=== PATIENT | male | born 1945 | race Caucasian/White ===

== ENCOUNTER 2017-04-17 17:16 | Emergency (ER) | payer MEDICARE, OTHER ==
[2017-04-17 17:20] VITALS: BP 126/80
--- NOTE | 2017-04-17 18:15 | PHYS DOC ---
Adult General Chief Complaint Chief Complaint: LACERATION/AVULSION [facility] HPI 71-year-old male ambulatory and functional lives at home now traveling out of town and presents to the emergency department because of a laceration at the base of his right thumb. Trying to cut a zip tie with a pen knife when he slipped and cut his right thumb. He had some bleeding but it is now controlled. He has normal use and range of motion of his thumb without difficulty. His tetanus is not up-to-date. No other complaints Review of Systems Review of Systems Constitutional: Denies fever or chills [] Eyes: Denies change in visual acuity, redness, or eye pain [] HENT: Denies nasal congestion or sore throat [] Respiratory: Denies cough or shortness of breath [] Cardiovascular: No additional information not addressed in HPI [] GI: Denies abdominal pain, nausea, vomiting, bloody stools or diarrhea [] : Denies dysuria or hematuria [] Musculoskeletal: Denies back pain or joint pain [] Integument: Denies rash or skin lesions [] Neurologic: Denies headache, focal weakness or sensory changes [] Endocrine: Denies polyuria or polydipsia [] Physical Exam Physical Exam Constitutional: Well developed, well nourished, no acute distress, non-toxic appearance. [] HENT: Normocephalic, atraumatic, bilateral external ears normal, oropharynx moist, no oral exudates, nose normal. [] Eyes: , conjunctiva normal, no discharge. [] Neck: Normal range of motion, no tenderness, supple, no stridor. [] Cardiovascular: No tachycardia in triage Lungs & Thorax: Normal symmetrical chest wall excursion with respirations [] Abdomen: Nondistended abdomen Skin: Warm, dry, no erythema, no rash. [] Back: Normal-appearing Extremities: No tenderness, no cyanosis, no clubbing, ROM intact, no edema. [] Neurologic: Alert and oriented X 3, normal motor function, normal sensory function, no focal deficits noted. [] Psychologic: Affect normal, judgement normal, mood normal. [] EKG EKG [] Radiology/Procedures Radiology/Procedures [] Course & Med Decision Making Course & Med Decision Making Pertinent Labs and Imaging studies reviewed. (See chart for details) Patient with uncomplicated flap wound at base of right thumb. No evidence of tendon involvement. Normal use and range of motion of thumb. Patient is aware of the possibility of nerve injury and compromised distal sensation. Tetanus given in the emergency department. Wound anesthetized with lidocaine irrigated extensively with high volume tap water irrigation and repaired with interrupted sutures per procedure note by ROSA Jacome. Patient tolerated it well without any complications. He will follow up with PCP in 2 days for a wound check and 10 days for suture removal. [] Dragon Disclaimer Dragon Disclaimer This chart was dictated in whole or in part using Voice Recognition software in a busy, high-work load, and often noisy Emergency Department environment. It may contain unintended and wholly unrecognized errors or omissions. Departure Departure: Disposition: 01 HOME, SELF-CARE Condition: IMPROVED Patient Instructions: Laceration Care, Adult Additional Instructions: U wound has been repaired with 8 removable sutures. Follow up with your doctor in 2 days for a wound check and 10 days for suture removal. He can apply anabolic ointment for the first day or 2 , after that clean dry dressing. It's okay to get it wet in the shower but don't soak or swim. Pat dry and replace with a clean bandage until healed ALETHEA ISSA MD Apr 17, 2017 18:15
[2017-04-17] MEDS ORDERED: DIPHTH,PERTUSS(ACELL),TET TOX 0.5 ML DISP.SYRIN. VAX IM ONE ×2 (18:27→18:30)
== END 2017-04-17 18:30 | disposition home or self-care (01) ==
LOC: ER 17:16
DX: S61.011A Laceration without foreign body of right thumb without damage to nail, initial encounter (principal); W26.0XXA Contact with knife, initial encounter; Y93.89 Activity, other specified; Y99.8 Other external cause status; Y92.89 Other specified places as the place of occurrence of the external cause
CPT/HCPCS: 12001; 90471; 90715; 99283-25